=== PATIENT | male | born 1995 | race Caucasian/White ===

== ENCOUNTER 2021-07-25 07:20 | Outpatient (RCR) | payer OTHER, SELFPAY ==
--- NOTE | 2021-07-25 08:11 | OTOPEVAL ---
OCCUPATIONAL THERAPY EVALUATION REPORT AND DISCHARGE SUMMARY 07/25/21 Abraham is a 25 year-old, left handed male who presents to outpatient hand therapy with reports of left wrist pain. Today, he only activity that recreates the wrist pain is when he sits down while weight bearing through an extended wrist. Static weight bearing did not recreate his pain. Provocative tests for TFCC injury were negative, however the area of his pain is at the distal ulna. No reports of paresthesias. He was educated on wrist strengthening for improved stability and the use of a wrist brace for 4-6 weeks to rest the TFCC area. He verbalizes excellent understanding of the HEP and reports he does not feel the need to follow up again. Discharging today with patient independent with all materials. Thank you for referring Abraham Ibrahim to [facility]. Please review, sign, date and return this D/C Note YOLI. I agree with and certify that the following plan of care is medically necessary. Referring Physician Date Referring Provider: Homar Marin MD *OT Outpatient Evaluation Start: 07/25/21 07:34 Therapy Assessment Status Assessment Status Assessment Status Evaluation Outpatient Past Medical History Past Medical History No Past Medical/Surgical History Patient/Family Denies Significant Past Medical/ Surgical History Evaluation Information Problem Diagnosis Left wrist sprain Subjective Information Patient reports left wrist Query Text:As Reported By Patient/ pain that has been occurring Family since last fall. He notes pain is intermittent and notices it most when playing tennis and sometimes with weight bearing during pushups. He points to the ulnar side of the wrist for the source of the pain. He states it would also get aggravated when doing push ups, so he bought push up handles, which have helped. 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 Dominance Left Pain Assessment Timing of Pain Assessment Timing of Pain Assessment Assessment Pain Scale Pain Scale Used Numeric (1 - 10) Self Report Pain Assessment Left Wrist(s) Reported Pain Level 0 Lowest Pain Intensity 0 Greatest Pain Intensity 4 Pain Score Pain Score 0: Self Report Upper Extremity Range of Motion General Upper Extremity Range of Motion Reason Not Measured WNL/Left Upper Extremity Muscle Strength Testing Wrist Strength Left Wrist Flexion Strength 5 Normal Wrist Extension Strength 5 Normal Wrist Radial Deviation 5 Normal Wrist Ulnar Deviation 5 Normal Wrist Strength Comments
== END 2021-07-25 10:22 | disposition home or self-care (01) ==
LOC: ANHOT 07:20
DX: S63.502D Unspecified sprain of left wrist, subsequent encounter (principal)
CPT/HCPCS: 97110; 97165